=== PATIENT | female | born 1945 | race Caucasian/White ===

== ENCOUNTER 2017-12-10 11:17 | Emergency (ER) | payer MEDICARE, OTHER ==
[2017-12-10 12:32] VITALS: BP 128/72
[2017-12-10] MEDS ORDERED: Tetracaine 0.5% OPTH.SOL 15ML* BTL RIGHT EYE ONE (12:40)
[2017-12-10] MEDS ORDERED: Fluorescein Sod TOPICAL 0.6* 0.6 MG TEST OPHTHALMIC ONE (12:40)
[2017-12-10] MEDS ORDERED: Tetracaine 0.5% OPTH.SOL 4 ML* 1 DROP BTL RIGHT EYE ONE (12:44)
--- NOTE | 2017-12-10 12:58 | UC ---
Eye Complaint HPI - HPI Summary HPI Summary: 72-year-old female presents with 2 day history of right eye discomfort. Started with immediately after she attempted to remove her contact from her eye. States she's had a corneal abrasion in the past and this feels very similar. States her eye feels "scratchy" when she blinks her eye, there is a foreign body sensation, and some mild tearing. Associated with some photophobia. Denies fever, chills, purulent drainage, or visual changes. - History of Current Complaint Chief Complaint: UCEye Stated Complaint: RIGHT EYE COMPLAINT Time Seen by Provider: 12/10/17 12:26 Hx Obtained From: Patient Onset/Duration: Sudden Onset Timing: Constant Severity Initially: Mild Pain Intensity: 3 Location of Injury: Conjunctiva Character: Foreign Body Sensation Aggravating Factor(s): Blinking Alleviating Factor(s): Nothing Associated Signs And Symptoms: Positive: Photophobia, Drainage (Clear). Negative: Vision Impairment Right, Fever, Swelling Related History: Similar Episode, Diagnosed As: - Corneal abrasion Eyes: 1 - Small area of fluoresceine uptake. - Risk Factors Penetrating Injury Risk Factor: Negative - Allergies/Home Medications Allergies/Adverse Reactions: Allergies Allergy/AdvReac Type Severity Reaction Status Date / Time codeine AdvReac Unknown Nausea Verified 12/10/17 12:17 Home Medications: Home Medications Calcium Carbonate/Vitamin D3 [Calcium 600 + Vit D Tablet] 1 each PO DAILY [History Confirmed 12/10/17] Gabapentin CAP(*) [Neurontin 300 CAP(*)] 300 mg PO BEDTIME 12/10/17 [History Confirmed 12/10/17] Glucosamine Sulfate Dipot Chlr [Gnp Glucosamine Maximum S] 1,000 mg PO DAILY [History Confirmed 12/10/17] Loperamide CAP* [Imodium CAP*] 1 mg PO DAILY 12/10/17 [History Confirmed ] Propylene Glycol/Peg 400/Pf [Systane 0.3-0.4% Eye Drops] 1 each OP PRN 12/10/17 [History] celeCOXIB CAP* [CeleBREX CAP*] 200 mg PO DAILY PRN 12/10/17 [History Confirmed 12/10/17] PMH/Surg Hx/FS Hx/Imm Hx - Additional Past Medical History Additional PMH: Osteoarthritis Previously Healthy: Yes - Surgical History Surgical History: Yes Surgery Procedure, Year, and Place: KNEE SURGERY. RIGHT ROTATOR CUFF REPAIR - Family History Family History: Noncontributory - Social History Occupation: Retired Lives: Alone Alcohol Use: None Substance Use Type: None Smoking Status (MU): Never Smoked Tobacco Review of Systems Constitutional: Negative Skin: Negative Eyes: Photophobia, Other - See history of present illness ENT: Negative Is Patient Immunocompromised?: No All Other Systems Reviewed And Are Negative: Yes Physical Exam Triage Information Reviewed: Yes Appearance: Well-Appearing, No Pain Distress, Well-Nourished Vital Signs: Initial Vital Signs Temp 97.7 F 12/10/17 12:22 Pulse 69 12/10/17 12:22 Resp 18 12/10/17 12:22 BP 128/72 12/10/17 12:22 Pulse Ox 96 12/10/17 12:22 Vital Signs Reviewed: Yes Eye Exam: Normal Eyes: Positive: Other: - PERRLA. Extraocular eye movements intact. Mild injection to the right conjunctiva. Eye was examined under magnification using a Lynn lamp. Upper and lower eyelids inverted. No foreign body noted. There is a small area of fluorescein uptake noted to the cornea immediately lateral to the pupil at the 3 o'clock position. See diagram. ENT Exam: Normal Respiratory: Positive: Lungs clear, Normal breath sounds, No respiratory distress Cardiovascular: Positive: RRR, No Murmur Neurological: Positive: Alert Skin Exam: Normal Procedures - Eye Procedure Right Alcaine Drops Administered: Yes - with fluorescein. Eye Complaint Course/Dx - Course Course Of Treatment: 72 year old female presents with right eye discomfort with tearing and photophobia that started suddenly after removing a contact 2 days ago. Exam revealed a small area of fluorosceine uptake to the cornea that likely from a healing corneal abrasion. Will treat with 5 day course of fluroquinilone ophtalmic drops as she is a contact lens wearer. She as been given a referral to ophthalmology for follow up if symptoms do not improve. Patient verbalizes understanding and agrees with POC. - Differential Dx/Diagnosis Differential Diagnosis/HQI/PQRI: Conjunctivitis, Corneal Abrasion, Foreign Body Provider Diagnoses: corneal abrasion right eye Discharge - Sign-Out/Discharge Documenting (check all that apply): Patient Departure All imaging exams completed and their final reports reviewed: No Studies - Discharge Plan Condition: Stable Disposition: HOME Prescriptions: Ciprofloxacin 0.3% OPTH.HANDY* [Cipro 0.3% Opth*] 2 drop RIGHT EYE Q4H 5 Days #1 btl Patient Education Materials: Corneal Abrasion (ED) Referrals: Aleksandra Rojas MD [Primary Care Provider] - Lucas Garland MD [Medical Doctor] - 1 Day (If symptoms persist. Call for appointment.) Additional Instructions: I did not see any evidence of a retained contact or foreign body. There was a small area that may be a healing corneal abrasion. Start ciprofloxacin opthlamic 2 drops into right eye four times a day for 5 days. Do not wear your contacts until after you have completed the treatment. Use a new pair of contacts once your treatment has been completed. Follow-up with Dr. Garland, ophthalmology, if her symptoms continue to persist. Call for an appointment. Seek immediate medical attention if you have worsening eye pain, changes in vision, drainage from the eye, or any worsening of symptoms. - Billing Disposition and Condition Condition: STABLE Disposition: Home
== END 2017-12-10 13:06 | disposition home or self-care (01) ==
LOC: UCCORT 11:17
DX: S05.01XA Injury of conjunctiva and corneal abrasion without foreign body, right eye, initial encounter (principal); M19.90 Unspecified osteoarthritis, unspecified site; Z88.5 Allergy status to narcotic agent; X58.XXXA Exposure to other specified factors, initial encounter; Y92.9 Unspecified place or not applicable
CPT/HCPCS: 99212; A9270-GY; G0463